=== PATIENT | female | born 1980 | race Caucasian/White ===

== ENCOUNTER 2017-11-20 11:35 | Emergency (ER) | payer BC ==
[2017-11-20] MEDS ORDERED: ONDANSETRON 4 MG/2 ML VIAL ONE (12:16)
[2017-11-20] MEDS ORDERED: ONDANSETRON 4 MG/2 ML VIAL IVP ONE (12:23)
[2017-11-20] MEDS ORDERED: NS 1,000 ML IV ONE (12:23)
--- NOTE | 2017-11-20 13:14 | EDPHY ---
H & P Stated Complaint: n/v Time Seen by Provider: 11/20/17 12:43 HPI/ROS: CHIEF COMPLAINT: Nausea vomiting HISTORY OF PRESENT ILLNESS: This is a 36-year-old female who was undergoing chemotherapy, Tramadardar, for recurrent glioblastoma multiforme. She was diagnosed with GBM in 2009 and treated with radiation therapy and chemotherapy. She has been followed regularly since then; in April of 2017 she was found to have recurrence. She had a biopsy done in June of 2017 followed by gamma knife radiation treatment. She is now on her 10th week of chemotherapy. She has had some nausea with this medication but over the last 2 weeks has had worsening nausea. She also noticed that the nausea seemed to be mostly in the morning and that her breasts were sore. She did a home test that was positive and then she had a test done in her primary care physician's office. She has Zofran that she uses for nausea but this has not been sufficient. She lives in [place], flew to [place] yesterday, and has had persistent nausea and vomiting since then; essentially unable to keep anything down. She is SAB 1. She does not have headache, confusion, weakness, or numbness. No vaginal bleeding. No dysuria. No fever. She denies abdominal pain. She has not had diarrhea. REVIEW OF SYSTEMS: A ten point review of systems was performed and is negative with the exception of the items mentioned in the HPI. Past medical history: Glioblastoma multiforme as above Social history: She lives with her in [place]. She works in [email or web address]. She does not use tobacco or alcohol products. General Appearance: Alert. Vital signs reviewed. Eyes: Pupils equal and round, no conjunctival injection, no discharge. Anicteric. ENT, Mouth: Mucous membranes are moist, no oropharyngeal erythema or edema. Neck: No lymphadenopathy, supple. Respiratory: Lungs are clear to auscultation; no wheezes, rales, or rhonchi. Cardiovascular: Regular rate and rhythm; no murmur, rub, or gallop. Gastrointestinal: Abdomen is soft and nontender, no masses or organomegaly, bowel sounds normal. Skin: Warm and dry, no rashes on exposed skin, normal color. Back: Nontender to palpation over the thoracolumbar spine. No CVAT. Extremities: No lower extremity edema, no calf tenderness or swelling. Neurological: Alert and oriented. Moving all four extremities easily and equally. Cranial nerves II through XII are examined and are intact (visual acuity not tested). Optic discs are sharp. Strength is 5 over 5 bilaterally with testing of all major motor groups. Sensation is intact to light touch over all 4 extremities. Deep tendon reflexes are 2+ in the biceps and knees bilaterally. Gait is normal. [id number] is performed accurately. Psychiatric: Normal affect. - Personal History LMP (Females 10-55): Current Tetanus/Diphtheria Vaccine: Yes Current Tetanus Diphtheria and Acellular Pertussis (TDAP): Yes - Medical/Surgical History Hx Asthma: No Hx Chronic Respiratory Disease: No Hx Diabetes: No Hx Cardiac Disease: No Hx Renal Disease: No Hx Cirrhosis: No Hx Alcoholism: No Hx HIV/AIDS: No Hx Splenectomy or Spleen Trauma: No Other PMH: glioblastoma, - Social History Smoking Status: Never smoked Constitutional: Initial Vital Signs Temperature (C) 36.7 C 11/20/17 11:47 Heart Rate 88 11/20/17 11:47 Respiratory Rate 16 11/20/17 11:47 Blood Pressure 126/85 H 11/20/17 11:47 O2 Sat (%) 98 11/20/17 11:47 O2 Delivery Mode Room Air Allergies/Adverse Reactions: No Known Allergies Allergy (Unverified 11/20/17 11:45) Home Medications: Medication Instructions Recorded [facility] 11/20/17 Multivitamin (*) 11/20/17 Ondansetron Odt [Zofran Odt 4 mg 4 mg PO Q4 PRN #10 tab 11/20/17 (RX)] 11/20/17 Tramadar 11/20/17 Vitamin B Complex 11/20/17 Zofran 11/20/17 Medical Decision Making ED Course/Re-evaluation: Nausea vomiting, possibly secondary to early . She feels better after L of IV normal saline and 4 mg Zofran IV. Try p.o. Challenge. I have offered MRI scanning to assess the status of her brain tumor. Her neurologic exam is normal today. She would like to hold off on any any imaging at this point in time. She is comfortable following up with her neurosurgeon when she returns to [place]. She understands the danger signs that should prompt her to be re-evaluated. She understands that intracranial pressure, as might be caused by edema around brain tumor, can cause vomiting. She also understands that this has not been ruled out as an etiology of the vomiting that she is currently experiencing. Her chemotherapy is also a potential culprit. She did well with an oral challenge and is comfortable returning home. She feels that she can continue to hydrate and eat small bland meals. She will return if she is having any difficulty. - Data Points Medications Given: Discontinued Medications Sodium Chloride (Ns) 1,000 mls @ 0 mls/hr IV ONCE ONE PRN Reason: Wide Open Stop: 11/20/17 12:24 Last Admin: 11/20/17 12:31 Dose: 1,000 mls Ondansetron HCl (Zofran) 4 mg IVP EDNOW ONE Stop: 11/20/17 12:24 Last Admin: 11/20/17 12:31 Dose: 4 mg Departure - Departure Disposition: Home, Routine, Self-Care Clinical Impression: Vomiting Qualifiers: Vomiting type: unspecified Vomiting Intractability: non-intractable Nausea presence: with nausea Qualified Code(s): R11.2 - Nausea with vomiting, unspecified Condition: Good Instructions: Nausea and Vomiting in (ED) Additional Instructions: As you know, we are not not 100% certain that the nausea vomiting you are experiencing is secondary to . Please follow up with your surgeon when you return to [place] this coming week. If you have any new or concerning symptoms--headache, seizure, new numbness, new weakness, change in vision, confusion--you should be re-evaluated immediately. Continue to use the Zofran that you have for nausea. Dolores foods, frequent small meals. Referrals: TABATHA STEVENS [Other] - As per Instructions Prescriptions: Ondansetron Odt [Zofran Odt 4 mg (RX)] 4 mg PO Q4 PRN #10 tab PRN Reason: nausea
[2017-11-20 13:54] VITALS: BP 108/66
== END 2017-11-20 13:53 | disposition home or self-care (01) ==
DX: R11.2 Nausea with vomiting, unspecified (principal)
CPT/HCPCS: 96374; J2405